=== PATIENT | male | born 1965 | race Caucasian/White ===

== ENCOUNTER 2025-10-05 08:18 | Day surgery (SDC) | payer OTHER ==
[2025-10-05] MEDS ORDERED: Ketorolac 30 MG/ML SDV IVPUSH ONE (08:19)
[2025-10-05] MEDS ORDERED: Propofol 200 MG/20 ML SDV IV ONE (08:19)
[2025-10-05] MEDS ORDERED: fentaNYL 100 MCG/2 ML SDV IV ONE (08:19)
[2025-10-05] MEDS ORDERED: Ondansetron 4 MG/2 ML SDV IVPUSH ONE (08:19)
[2025-10-05] MEDS ORDERED: Midazolam 1 MG/ML 2 ML SDV IV ONE (08:19)
[2025-10-05] MEDS ORDERED: Dexamethasone 4 MG/ML 5 ML MDV IVPUSH ONE (08:19)
[2025-10-05] MEDS ORDERED: Sodium Chloride 0.9% 10 ML Syringe FLUSH PRN (08:30)
[2025-10-05 08:51] VITALS: BP 115/79; PULSE 70
[2025-10-05] MEDS: Lactated Ringers 1,000 ML IV SCH (09:01)
[2025-10-05] MEDS: Lidocaine 1% with EPINEPHrine 1:100,000 20 ML MDV INJECT ONE ×2 (10:14)
== END 2025-10-05 12:45 | disposition home or self-care (01) ==
LOC: FB.SDS 08:18
PROVIDERS: ATTEND Surgery
DX: K40.90 Unilateral inguinal hernia, without obstruction or gangrene, not specified as recurrent (principal); D17.6 Benign lipomatous neoplasm of spermatic cord
CPT/HCPCS: 00830; 49505; 88304; C1781; J0665; J0690; J1100; J1885; J2003; J2004; J2250; J2405; J2704; J3010; J7120